=== PATIENT | female | born 2000 | race Hispanic/Latino ===

== ENCOUNTER 2022-11-29 10:44 | Emergency (ER) | payer SELFPAY ==
[~2022-11-29] VITALS: Ht 165.1 cm; Wt 59.0 kg
[2022-11-29 10:53] VITALS: BP 105/81; PULSE 85; RESP 16; TEMP 97.9; O2SAT 100
== END 2022-11-29 11:05 | disposition home or self-care (01) ==
LOC: ER 10:44
DX: L60.0 Ingrowing nail (principal)
CPT/HCPCS: 99281

== ENCOUNTER 2022-12-08 19:25 | Emergency (ER) | payer SELFPAY ==
[~2022-12-08] VITALS: Ht 165.1 cm; Wt 59.0 kg
[2022-12-08 19:31] VITALS: BP 125/60; PULSE 78; RESP 16; TEMP 98; O2SAT 98
[2022-12-08 20:09] LABS: UAMPH METHAMP(SCRN) NEGATIVE (co1000ng/mL); UR MDMA (ECSTASY) SCRN NEGATIVE (c/o300ng/mL); UR METHADONE SCRN NEGATIVE (c/o300ng/mL); UR OPIATE SCRN NEGATIVE (c/o300ng/mL); UR PHENCYCLIDINE (PCP) SCRN NEGATIVE (c/o 25ng/mL)
[2022-12-08 20:10] LABS: UR TETRAHYDROCANNABINOL SCRN PRESUMPTIVE POSITIVE (c/o 50ng/mL)
[2022-12-08] MEDS ORDERED: BACTRIM DS PO STA (20:13)
[2022-12-08] MEDS ORDERED: BACTRIM DS ONE (20:23)
[2022-12-08] MEDS ORDERED: TORADOL ONE (20:23)
[2022-12-08] MEDS ORDERED: TORADOL IM ONE (20:30)
== END 2022-12-08 20:35 | disposition home or self-care (01) ==
LOC: ER 19:25
DX: L60.0 Ingrowing nail (principal)
CPT/HCPCS: 96372; 99283; 80353; 80349; 36415; 80307; 81025; J1885; G0480